=== PATIENT | female | born 1965 | race Two or more races ===

== ENCOUNTER 2025-04-16 09:20 | Emergency (ER) | payer MEDICAID, OTHER ==
[~2025-04-16] VITALS: Ht 160 cm; Wt 70.0 kg
--- NOTE | 2025-04-16 09:46 | ED.PDOC ---
History of Present Illness HPI Comments A 59-YEAR-OLD FEMALE PRESENTS WITH A CHIEF COMPLAINT OF RIGHT UPPER BACK PAIN X 8 DAYS. PATIENT DENIES ANY FALLS OR TRAUMA PRIOR TO ONSET OF SYMPTOMS. PATIENT IS ALSO STATING THAT SHE HAS DISCHARGE THAT IS COMING FROM HER RIGHT BREAST THAT WAS BLOODY X 3 DAYS AGO. PATIENT DENIES ANY TRAUMA TO HER BREAST. NO OTHER SYMPTOMS OR MODIFYING FACTORS PRESENT AT THIS TIME. PT IS ALERT, ORIENTATION X4 WITH NORMAL GAIT. Chief Complaint: Back Pain Time Seen by MD: 09:43 Reviewed Notes: Nurses Notes, Medications, Allergies Allergies: Coded Allergies: NO KNOWN ALLERGIES (Unverified , 04/16/25) Information Source: Patient Mode of Arrival: Ambulatory Severity: Moderate Timing: Days Duration: Since onset Prehospital treatment: None Medication Refill: For: Other (RIGHT BREAST PAIN AND NIPPLE DISCHARGE ) Past Medical History PAST MEDICAL HISTORY: Denies Surgical History: Denies all surgeries RATE MANAGER History: Denies all RATE MANAGER Hx Family History Family History: Reviewed,noncontributory to illness Social History Smoker: Non-Smoker Alcohol: Denies ETOH Use Drugs: Denies Drug Use Lives In: Home Constitutional: denies: chills, diaphoresis, fatigue, fever, malaise, sweats, weakness, others EENTM: denies: blurred vision, double vision, ear bleeding, ear discharge, ear drainage, ear pain, ear ringing, eye pain, eye redness, hearing loss, mouth pain, mouth swelling, nasal discharge, nose bleeding, nose congestion, nose pain, photophobia, tearing, throat pain, throat swelling, voice changes, others Respiratory: denies: cough, hemoptysis, orthopnea, SOB at rest, shortness of breath, SOB with excertion, stridor, wheezing, others Cardiovascular: denies: chest pain, dizzy spells, diaphoresis, Dyspnea on exertion, edema, irregular heart beat, left arm pain, lightheadedness, palpitations, PND, syncope, others Gastrointestinal: denies: abdomen distended, abdominal pain, blood streaked bowels, constipated, diarrhea, dysphagia, difficulty swallowing, hematemesis, melena, nausea, poor appetite, poor fluid intake, rectal bleeding, rectal pain, vomiting, others Genitourinary: denies: abnormal vagina bleeding, burning, dyspareunia, dysuria, flank pain, frequency, hematuria, incontinence, pain, , vagina discharge, urgency, others Neurological: denies: dizziness, fainting, headache, left sided numbness, left sided weakness, numbness, paresthesia, pre-existing deficit, right sided nu mbness, right sided weakness, seizure, speech problems, tingling, tremors, weakness, others Musculoskeletal: reports: back pain, muscle pain; denies: gout, joint pain, joint swelling, muscle stiffness, neck pain, others Integumetry: reports: others (MILD NIPPLE DISCHARGE. ); denies: bruises, change in color, change in hair/nails, dryness, laceration, lesions, lumps, rash, wounds Allergic/Immunocompromised: denies: Difficulty Healing, Frequent Infections, Hives, Itching, others Hematologic/Lymphatic: denies: anemia, blood clots, easy bleeding, easy bruising, swollen glands, others Endocrine: denies: excessive hunger, excessive sweating, excessive thirst, excessive urination, flushing, intolerance to cold, intolerance to heat, unexplained weight gain, unexplained weight loss, others Psychiatric: denies: anxiety, bipolar disorder, depression, hopeless, panic disorder, schizophrenia, sleepless, suicidal, others All Other Systems: Reviewed and Negative Physical Exam General Appearance: No Apparent Distress, Normal HEENT: Normal ENT Inspection, PERRL/EOMI, Pharynx Normal, TMs Normal Neck: Full Range of Motion, Non-Tender, Normal, Normal Inspection Respiratory: Chest Non-Tender, Lungs Clear, No Accessory Muscle Use, No Respiratory Distress, Normal Breath Sounds Cardiovascular: No Edema, No JVD, No Murmur, No Gallop, Normal Peripheral Pulses, Regular Rate/Rhythm Breast Exam: (R) Tenderness (TENDERNESS WITH MILD BROWN NIPPLE DISCHARGE, NO LUMP AND NODULE PALAPLE, NO RIGHT BREAST REDNESS, SWELLING AND OPEN WOUND. ), Other (NORMAL LEFT BREAST EXAM. ) Gastrointestinal: No Organomegaly, Non Tender, No Pulsatile Mass, Normal Bowel Sounds, Soft Genitalia: Deferred Pelvic: Deferred Rectal: Deferred Extremities: No calf tenderness, Normal capillary refill, Normal inspection, Normal range of motion, Non-tender, No pedal edema Musculoskeletal : Location: Right Extremity Location: Back Apperance: Tenderness (AND MUSCLE SPASM ON RIGHT UPPER BACK, NO BONY TENDERNESS, SWELLING AND DEFORMITY. 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 Was a procedure done?: No Differential Dx Considerations may include: RIGHT BREAST MASS/INFECTION/CYST, MUSCLE SPASM OF RIGHT UPPER BACK. X-Ray, Labs, Meds, VS Vital Signs Date Time Temp Pulse Resp B/P (MAP) Pulse Ox O2 Delivery O2 Flow Rate FiO2 04/16/25 11:19 99.7 87 17 125/80 (95) 96 99.7 04/16/25 11:19 87 17 96 Room Air 04/16/25 09:22 98.1 98 20 148/86 95 98.1 PATIENT: LINO BURNETTEACCT: [id number]: [id number] : 1965 LOC: ER ROOM / BED: / AGE / SEX: 59 / F ADM STATUS: REG ER SERVICE [id number] ORDERING PHYSICIAN: BRITTNEY MOCK PROCEDURE(s): CXR2 - CHEST TWO VIEWS ROUTINE REASON: RIGHT UPPER BACK PAIN ORDER NUMBER(s): [id number], ACCESSION NUMBER(s): [id number] CHEST TWO VIEWS ROUTINE CLINICAL HISTORY: RIGHT UPPER BACK PAIN COMPARISON: None TECHNIQUE: Frontal and lateral view of the chest was obtained FINDINGS: Lines and Tubes: None Lungs: No focal consolidation. Pleura: No effusion. No pneumothorax. Cardiomediastinal contours: Unremarkable Bones: No acute osseous abnormality. IMPRESSION: 1. No acute cardiopulmonary disease. ATED BY: MADIDSON MOHAMUD MD DICTATED DATE/TIME: 04/16/25 103 SIGNED BY: MADDISON MOHAMUD MD SIGNED DATE/TIME: 04/16/25 103 PATIENT: LINO BURNETTE ACCT: [id number] UNIT: [id number] : 1965 LOC: ER ROOM / BED: / AGE / SEX: 59 / F ADM STATUS: REG ER SERVICE [id number] ORDERING PHYSICIAN: BRITTNEY MOCK PROCEDURE(s): RBRST - R BREAST ULTRASOUND REASON: RIGHT BREAST LUMP, PAIN WITH NIPPLE DISCHARGE ORDER NUMBER(s): [id number], ACCESSION NUMBER(s): [id number] US OF THE RIGHT BREAST INDICATION: RIGHT BREAST LUMP, PAIN WITH NIPPLE DISCHARGE TECHNIQUE: Targeted right breast ultrasound was performed COMPARISON: Prior exam dated: None FINDINGS: Simple cysts are visualized in the right retroareolar breast measuring up to 0.6 cm. Duct ectasia is visualized in the right retroareolar breast. There are benign-appearing lymph nodes in the right axilla. IMPRESSION: Cysts and duct ectasia in the right breast are benign. No suspicious sonographic abnormality. However, further evaluation with diagnostic bilateral breast mammogram is recommended. ACR Bi Rads Category:Category 0-"INCOMPLETE" (Needs Additional Imaging Evaluation)) ATED BY: DREW BARRERA MD DICTATED DATE/TIME: 04/16/25 105 SIGNED BY: DREW BARRERA MD SIGNED DATE/TIME: 04/16/25 105 X-Ray, Labs, Meds, VS Comment EXTERNAL MEDICAL RECORDS REVIEWED: [NONE] INDEPENDENT HISTORIANS: [NONE] SOCIAL DETERMINANTS OF HEALTH: [NONE] LABS ORDERED: NONE REVIEWED AND INTERPRETED RESULTS: NONE IMAGING ORDERED: NONE TREATMENTS ORDERED: PT DECLINES PAIN MEDICATION AND RX. PROCEDURES PERFORMED: NONE CRITICAL CARE TIME: NONE I HAVE DISCUSSED THE PATIENT WITH THE ATTENDING PHYSICIAN DR. FAGAN AND HE AGREES WITH THE PATIENT'S PLAN OF CARE AND DISPOSITION. BASED ON HISTORY OF PRESENT ILLNESS, AND PHYSICAL EXAM, PATIENT WILL BE DISCHAR GE HOME. SHARED DECISION MAKING: DISCUSSED WITH PATIENT THAT THEIR WORKUP WAS NORMAL. PATIENT INSTRUCTED TO FOLLOW UP WITH PRIMARY CARE PROVIDER IN 1-2 DAYS FOR RE- EVALUATION OF SYMPTOMS TO MAMMOGRAM TEST. PATIENT VERBALIZES UNDERSTANDING TO RETURN TO ED FOR NEW OR WORSENING SYMPTOMS OR IF FOLLOW UP WITH PCP CANNOT BE OBTAINED. PATIENT FEELS COMFORTABLE GOING HOME AT THIS TIME. ALL QUESTIONS ADDRESSED AT TIME OF DISCHARGE. Time of 1ST Reevaluation: 10:15 Reevaluation 1ST: Unchanged Patient Education/Counseling: Diagnosis, Treatment, Need For Follow Up Family Education/Counseling: Diagnosis, Treatment, No Family Present Medical Screening: No EMC Exist At This Time SEPSIS Sepsis Screen Date sepsis recognized/suspect: Apr 16, 2025 Time Sepsis recognized/suspect: 923 Recent Procedure: No On Antibiotic Therapy: No Respiratory Rate >20: No Heart Rate >90: Yes Temp<36 C (96.8 F) or >38.3 C: No SBP <90 or MAP <65 mmHG: No New Acute Mental Status Change: No Is the patient on CPAP, BIPAP,: No Physician Orders Chest Two Views Routine (04/16/25 10:07) R Breast Ultrasound (04/16/25 09:52) Vital Signs Date Time Temp Pulse Resp B/P (MAP) Pulse Ox O2 Delivery O2 Flow Rate FiO2 04/16/25 11:19 99.7 87 17 125/80 (95) 96 99.7 04/16/25 11:19 87 17 96 Room Air 04/16/25 09:22 98.1 98 20 148/86 95 98.1 Departure 1 Departure Time of Disposition: 11:30 Impression: Primary Impression: Cyst of right breast Additional Impressions: 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 RETURN TO THE ER IF YOUR SYMPTOMS WORSEN. Discharged With: Self Critical Care Note Critical Care Time?: No Stability Stability form required: No Heart Score Heart Score: Heart Score Response (Comments) Value History N/A 0 EKG N/A 0 Age N/A 0 Risk Factors N/A 0 Troponin N/A 0 Total 0 I personally scribed for BRITTNEY MOCK PA ([email or web address]) on 04/16/25 at 09:46. Electronically submitted by Maurilio Garg ([email or web address]). I personally scribed for NISHROBERTA McmanusA PA ([email or web address]) on 04/16/25 at 11:05. Electronically submitted by Maurilio Garg ([email or web address]). I personally scribed for NISHROBERTAA PA ([email or web address]) on 04/16/25 at 11:06. Electronically submitted by Maurilio Garg ([email or web address]). I personally scribed for ROBERTA MOCKA PA ([email or web address]) on 04/16/25 at 11:17. Electronically submitted by Maurilio Garg ([email or web address]). BRITTNEY MOCK Apr 16, 2025 09:46
--- NOTE | 2025-04-16 10:36 | DVH ---
XY CHEST TWO VIEWS ROUTINE CLINICAL HISTORY: RIGHT UPPER BACK PAIN COMPARISON: None TECHNIQUE: Frontal and lateral view of the chest was obtained FINDINGS: Lines and Tubes: None Lungs: No focal consolidation. Pleura: No effusion. No pneumothorax. Cardiomediastinal contours: Unremarkable Bones: No acute osseous abnormality. IMPRESSION: 1. No acute cardiopulmonary disease.
--- NOTE | 2025-04-16 11:00 | DVH ---
US OF THE RIGHT BREAST INDICATION: RIGHT BREAST LUMP, PAIN WITH NIPPLE DISCHARGE TECHNIQUE: Targeted right breast ultrasound was performed COMPARISON: Prior exam dated: None FINDINGS: Simple cysts are visualized in the right retroareolar breast measuring up to 0.6 cm. Duct ectasia is visualized in the right retroareolar breast. There are benign-appearing lymph nodes in the right axi lla. IMPRESSION: Cysts and duct ectasia in the right breast are benign. No suspicious sonographic abnormality. Howeve r, further evaluation with diagnostic bilateral breast mammogram is recommended. ACR Bi Rads Category:Category 0-"INCOMPLETE" (Needs Additional Imaging Evaluation))
[2025-04-16 11:19] VITALS: BP 125/80; PULSE 87; RESP 17; TEMP 99.7; O2SAT 96
== END 2025-04-16 11:20 | disposition home or self-care (01) ==
LOC: ER 09:20
DX: N60.01 Solitary cyst of right breast (principal); N60.41 Mammary duct ectasia of right breast; M62.830 Muscle spasm of back
CPT/HCPCS: 71046; 76642

== ENCOUNTER → 2025-05-26 | Emergency (ER) | payer MEDICAID ==
[~2025-05-26] VITALS: Ht 157.5 cm; Wt 76.1 kg
[2025-05-26 13:01] VITALS: BP 137/74; PULSE 83; RESP 18; TEMP 98; O2SAT 97
== END | disposition left against medical advice (07) ==
LOC: ER 13:00
DX: R73.9 Hyperglycemia, unspecified (principal); Z53.21 Procedure and treatment not carried out due to patient leaving prior to being seen by health care provider